=== PATIENT | female | born 1990 | race Caucasian/White ===

== ENCOUNTER 2016-04-28 08:00 | Inpatient (IN) ==
[2016-04-28] MEDS ORDERED: Naloxone 0.4 MG/ML INJ IVP PRN (08:16)
[2016-04-28] MEDS ORDERED: Metoclopramide 10 MG/2 ML VIAL IVP PRN (08:16)
[2016-04-28] MEDS ORDERED: Famotidine 20 MG/2 ML VIAL IVP PRN (08:16)
[2016-04-28] MEDS: miSOPROStol 25 MCG TABLET PO SCH ×2 (08:59→13:02)
[2016-04-28 09:03] LABS: Basophils % 0.3 %; Eosinophils # 0.1 K/mcL (0.0-0.6); Eosinophils % 0.6 %; Hemoglobin 10.7 g/dL (11.5-15.4); Immature Granulocytes % 0.4 % (0-4); Lymphocytes # 2.6 K/mcL (0.6-4.6); Lymphocytes % 25.2 %; Mean Corpuscular HGB Conc 33.4 g/dL (31.6-35.5); Mean Corpuscular Volume 80.6 fL (83.0-100.0); Mean Platelet Volume 10.8 fL (9.4-12.4); Monocytes # 0.8 K/mcL (0.0-1.3); Monocytes % 7.8 %; Neutrophils # 6.8 K/mcL (1.6-8.9); Platelet Count 352 K/mcL (140-400); Red Blood Count 3.97 M/mcL (3.82-4.97); Red Cell Distribution Width 15.1 % (11.5-14.5); Segmented Neutrophils % 65.7 %
--- NOTE | 2016-04-28 10:01 | Anesthesia Evaluation PreOp ---
Date of Encounter: 04/28/16 Time of Encounter: 09:59 - Past History Planned Operation: term pregancy Pulmonary History: Former smoker (quit 9 months ago) DENTURE PROCESSOR History: Denies Any Significant HX Other Medical History: GERD : Yes (40 plus 5, ) Alcohol Use: none Drug use: none Medications and Allergies Allergies No Known Allergies Allergy (Verified 02/04/16 18:42) - Meds/Allergy Pre-op Review Medications Reviewed: Yes Allergies Reviewed: Yes Beta Blockers on Current Med List: No Anesthesia Results - Labs 04/28/16 08:50 Anesthesia Exam O2 Sat Height 1.68 m Height 1.68 m Weight 84.6 kg Weight 84.6 kg bp 131/81 hr 85 Height: 66 Weight: 84 - HEENT Pupil (Motor): Pupils equal Mallampati: II Teeth: Normal Oral Opening: Greater than 3 - DENTURE PROCESSOR LOC: Oriented DENTURE PROCESSOR Motor: Normal RUE, Normal LUE, Normal RLE, Normal LLE, Normal Face DENTURE PROCESSOR Sensory: Normal: RUE, LUE, RLE, LLE, Face - Cardiac Rhythm: Regular Murmur: None JVD: No Carotid Bruit: No - Pulmonary Breath Sounds: bilateral Clear Respiratory Effort: Symmetrical Anesthesia Assess/Plan ASA Score: 2 Modified [place] Scale for Level of Consciousness: Cooperative, oriented, and tranquil Anesthetic Plan: Regional Autologous Blood: No Monitoring Plan: Standard Monitors
--- NOTE | 2016-04-28 11:19 | OB Labor Progress Note ---
Date of Encounter: 04/28/16 Time of Encounter: 11:18 Labor Progress Note - Subjective Subjective: Pt with minimal discomfort at this time. - Cervix Cervix: 3/80/-1 - Heart Tones Heart Tones: Category I - Badin Badin: irregular - Interventions Interventions: AROM for small amount clear fluid - Plan Plan: Continue to monitor. Repeat cytotec or pitocin augmentation as needed. Anticipate .
--- NOTE | 2016-04-28 13:08 | OB/GYN History & Physical ---
Date of Encounter: 04/28/16 Time of Encounter: 13:00 Assessment and Plan (1) 40 weeks gestation of Current visit: Yes Status: Acute Admit for IOL. GBS negative Cytotec PO. AROM performed for small amount clear fluid. Epidural when requested. Anticipate . History of Present Illness Chief complaint: IOL HPI: Ms. Bauer is a 26 year old female presenting at 40w5d for induction of labor. She reports feeling well today with good FM. This has been uncomplicated other than a quad screen with risk of Down's syndrome 1: 120. Panorama testing was low risk for Down's. Blood type O negative. Rubella immune. HIV, Hep B sag, and treponema negative. GBS negative. Past Med Surg Social Fam HX - Past Medical History Medical history: no medical history Psychiatric history: no psych history - Social History Smoking Status: Former smoker Smokeless Tobacco Status: No Alcohol use: none Drug use: none - Family History Mother Adopted: [place]: January Living Status: Still Living Hx Family Cardiac Disorders: Yes (A-fib) Hx Family Respiratory Disorders: No Hx Family Cancer: No Hx Family GI Disorders: No Hx Family Genitourinary Disorders: No Hx Family Endocrine Disorder: No Hx Family Musculoskeletal Disorders: No Hx Family Neuromuscular Disorders: No Hx Family Neurologic Disorders: No Hx Family HEENT Disorders: No Hx Family Autoimmune Disorders: No Hx Family Reproductive Disorders: No Hx Family Psychosocial Disorders: No Hx Family Medical Disorders: No Obstetrical History - Pregnancies : 3 Para: 1 Term: 1 : 0 Ab's: 1 Livin Medications and Allergies Allergies No Known Allergies Allergy (Verified 02/04/16 18:42) Review of System OB All systems PM: reviewed and no additional remarkable complaints except as stated Exam - Constitutional Constitutional: well developed, well nourished, no acute distress - HEENT HEENT: Mucus Membranes Moist - Lungs Respiratory exam: CTAB - Cardiovascular Cardiovascular exam: RRR, +S1, +S2 - Abdomen Abdomen: Present: gravid, non tender - Extremities Extremities exam: normal inspection Deep Tendon Reflex Grade: 2+ Normal - Vulva Vulva: bilateral: normal - Vagina Vagina: Present: normal moisture - Cervix Dilation: 3 Effacement: 80 - Anus/Rectum Anus/Rectum: Present: normal perianal skin Results Result Diagrams: 04/28/16 08:50 Abnormal lab results Hgb 10.7 g/dL (11.5-15.4) L 04/28/16 08:50 Hct 32.0 % (35.3-44.9) L 04/28/16 08:50 MCV 80.6 fL (83.0-100.0) L 04/28/16 08:50 MCH 27.0 pg (28.0-33.3) L 04/28/16 08:50 RDW 15.1 % (11.5-14.5) H 04/28/16 08:50 All other labs normal. - VTE Reasons for not Prescribing Prophylaxis: Treatment not Indicated - Low risk for VTE
[2016-04-28] MEDS: Ringers Solution, Lactated 1,000 ML IVC SCH ×2 (13:26→14:33)
[2016-04-28] MEDS ORDERED: *HR* Ropivacaine/PF 0.2% 10 ML AMPUL ONE (13:51)
[2016-04-28] MEDS ORDERED: Epidural Premix (fent/bupiv) 110 ML EP ONE (13:51)
[2016-04-28] MEDS ORDERED: *HR* FentaNYL (PF) 100 MCG/2 ML VIAL ONE (13:51)
[2016-04-28] MEDS ORDERED: *HR* Ropivacaine/PF 0.2% 10 ML AMPUL EP ONE (14:17)
[2016-04-28] MEDS ORDERED: *HR* FentaNYL (PF) 100 MCG/2 ML VIAL EP ONE (14:17)
[2016-04-28] MEDS ORDERED: EPHEDrine 50 MG/ML VIAL IVP PRN (14:17)
--- NOTE | 2016-04-28 14:23 | Anesthesia Procedures ---
Date of Encounter: 04/28/16 Time of Encounter: 13:45 Procedures: Anesthesia - Epidural/Spinal Patient ID/Chart reviewed: Yes Patient examined: Yes OB Eval: Gestational age: 40 OB Eval: : 3 OB Eval: Hx Para: 1 OB Eval: Dilated at (cm): 4 OB Eval: Contractions: Non-stressed pattern Consent Obtained: No Supplemental Oxygen: None/Room Air Site Prep: Aseptic Technique Patient position: upright Local Anesthetic: Lidocaine 1% Amount of Local Anesthetic used: 3 Touhy Needle Gauge: 18 Touhy Needle Depth (cm): 5 Catheter Depth at Skin (cm): 12 Test Dose (1.5% Lido + Epi): Volume given (mls): 3 Test Dose Result: Negative Loading Dose: 0.25% Marcaine (mls): 5 Loading Dose: Fentanyl (mcg): 100 Loading Dose: Other: 3ml nss Loading Dose Administered: Thru Touhy Needle Infusion Med: 0.125% Bupivacaine w/ 2 mcg/ml Fentanyl Infusion Rate (mls/hr): [address]: Tegaderm Interspace Used: L3-L4 Loss of Resistance (RA): Yes Blood: No CSF: No Paresthesia: No Procedure: strict asepsis, good ra on first pass, no parasthesias, tolerated well, no change in fhr
[2016-04-28] MEDS ORDERED: Oxytocin 20 units/ LR 1000 mL 20 UNIT/1,000 ML BAG IVC ONE ×2 (15:37→18:22)
[2016-04-28] MEDS ORDERED: Lidocaine 1% 20 ML MDV ONE (15:38)
--- NOTE | 2016-04-28 18:21 | OB/GYN Procedure Note ---
Delivery - Delivery Date: 04/28/16 Provider: Shannan An Intrapartum events: none Delivery induction: misoprostol Delivery augmentation: rupture of membranes Delivery monitor: external FHT, external uterine Anesthesia: epidural Estimated Blood Loss: 200 - Infant (s) Infant A Delivery Date: 04/28/16 Infant Delivery Time: 16:43 Presentation: vertex Position: OA Route of delivery: Gender: Female Viability: Viable Pounds: 1 Ounces: 10 Weight Gram: 3435 kg at 1 minute: 8 at 5 mins: 9 Shoulder Dystocia: not encountered Specimens collected: cord blood Placenta: spontaneous Cord: nuchal cord, 3 umbilical vessels, delivered through nuchal - Repair Episiotomy: none Laceration Description: Labial (right) - Complications Delivery complications: none Delivery comments: Called to room with patient complete and +2 station. Under maternal effort she delivered a viable female weighing 7 lbs. 10 oz. and Apgars 8 and 9 at one and 5 minutes respectively over an intact perineum. Following delivery of the head there was a nuchal cord encountered that she delivered through. was placed on mom's abdomen. Cord clamping was delayed. She had a right labial laceration that was repaired using 0 Vicryl in a single interrupted stitch. Cord was clamped and cut. Cord blood collected. Placenta delivered spontaneously , complete, and intact with a three-vessel cord. Mother and infant recovering in the LDR in stable condition. - Disposition Mom disposition: stable in LDR [place] disposition: stable in LDR
[2016-04-28] MEDS ORDERED: Rho Immune Globulin 1,500 UNIT SYRINGE IM PRN (18:22)
[2016-04-28] MEDS ORDERED: Acetaminophen 325 MG TABLET PO PRN (18:22)
[2016-04-28] MEDS ORDERED: Oxytocin 20 units/ LR 1000 mL 20 UNIT/1,000 ML BAG IVC SCH (18:30)
[2016-04-28] MEDS: Ibuprofen 600 MG TABLET PO PRN (22:36)
[2016-04-29] MEDS ORDERED: Prenatal Vit/FA 1 EACH TABLET PO SCH (09:00)
[2016-04-29] MEDS: Ibuprofen 600 MG TABLET PO PRN (09:35)
--- NOTE | 2016-04-29 10:45 | Discharge Summary ---
Date of Encounter: 04/29/16 Time of Encounter: 10:40 - Discharge Diagnosis (1) Normal vaginal delivery Priority: Primary Status: Acute Comments: Day 1 post vaginal delivery Doing well. Pain well controlled. baby girl well. No complaints; would like to be discharged today. - Discharge Medications Prescriptions: Ibuprofen [Motrin] 600 mg PO Q6HR PRN #30 tablet PRN Reason: Cramping Docusate [Colace] 100 mg PO BID #14 capsule Vit/FA 1 each PO DAILY #30 tablet Home Medications: Docusate [Colace] 100 mg PO BID #14 capsule 04/29/16 [Rx] Ferrous Sulfate 325 mg PO DAILY tablet 04/29/16 [Rx] Ibuprofen [Motrin] 600 mg PO Q6HR PRN #30 tablet 04/29/16 [Rx] Vit/FA 1 each PO DAILY #30 tablet 04/29/16 [Rx] Allergies/Adverse Reactions: Allergies No Known Allergies Allergy (Verified 02/04/16 18:42) Data Procedures and tests throughout hospitalization: Laboratory Tests 04/28/16 04/28/16 04/28/16 08:50 17:20 17:27 WBC 10.3 RBC 3.97 Hgb 10.7 L Hct 32.0 L MCV 80.6 L MCH 27.0 L MCHC 33.4 RDW 15.1 H Plt Count 352 MPV 10.8 Immature Gran % 0.4 Seg Neutrophils % 65.7 Lymphocytes % 25.2 Monocytes % 7.8 Eosinophils % 0.6 Basophils % 0.3 Neutrophils # 6.8 Lymphocytes # 2.6 Monocytes # 0.8 Eosinophils # 0.1 Basophils # 0.0 Chlam trachomat DNA PCR NOT DETECTED Screen NEGATIVE Baby's Blood Type O RH POSITIVE Mother's Blood Type O RH NEGATIVE Rhogam Indicated YES Rhogam Req for Mother 1 Labs on day of discharge: Labs from last 24 hours 04/28/16 04/28/16 17:27 17:20 Chlam trachomat DNA PCR NOT DETECTED Screen NEGATIVE Baby's Blood Type O RH POSITIVE Mother's Blood Type O RH NEGATIVE Rhogam Indicated YES Rhogam Req for Mother 1 Date of admission: 04/28/16 08:11 Primary care physician: Josee Zhu Consults: 04/28/16 18:22 Consult to Laborer [employer] [CONS] Routine Comment: Vaginal delivery, consult needed Discharging clinician: Lizabeth Maldonado Anticipated date of discharge: 04/29/16 - Patient Status Disposition: Home, Self-Care Condition: Good Functional capacity at discharge: independent ambulation Overall status at discharge: patient is back to baseline - Discharge Instructions Follow Up With: Josee Willett, GRACIELA [Primary Care Provider] - Shannan An DO [Partnered Physician] - (May 27, 2016 @ 2:50 pm) - Diet and Activity Activity: increase activity as tolerated Diet: regular diet Hospital Course Reason for admission: induction of labor, IUP at term Delivery: Episiotomy: none Other procedures: none complications: none Discharge diagnosis: IUP at term delivered [place] baby: female Time Attestation: Total time spent providing and/or coordinating discharge services: Exam - Constitutional Vitals: Temp Pulse Resp BP Pulse Ox 98.0 F 81 16 117/70 98 04/29/16 07:35 04/29/16 07:35 04/29/16 07:35 04/29/16 07:35 04/29/16 03:15 General appearance IM: cooperative, A&O X 3, pleasant, no acute distress - Respiratory Respiratory exam: Present: CTAB - Cardiovascular Cardiovascular exam IM: Present: RRR, +S1, +S2 - GI/Abdominal GI/Abdominal exam IM: normal bowel sounds, soft - Uterine Tone: Firm Uterus Position: 2 Fingers Below Umbilicus, Midline - Extremities Exam Extremities exam IM: Present: full ROM, radial pulses palpable and symetrical. Absent: calf tenderness - Neurological Exam Neurological exam: alert, oriented X3
[2016-04-29 16:36] VITALS: BP 127/79
== END 2016-04-29 19:09 | disposition home or self-care (01) | DRG 775 ==
LOC: 1NENULAB 08:11 → 1NENUOBS 19:25
PROVIDERS: ADMIT Obstetrics & Gynecology; ATTEND Obstetrics & Gynecology